=== PATIENT | male | born 2000 | race Asian ===

== ENCOUNTER 2024-11-09 10:13 | Emergency (ER) | payer OTHER ==
[~2024-11-09] VITALS: Ht 188 cm; Wt 112.8 kg
[2024-11-09 10:52] LABS: BASO # 0.1 10^3/uL (0.0-0.2); BASO % 0.8 % (0.0-1.0); EOS # 0.1 10^3/uL (0.0-0.5); EOS % 0.8 % (0.0-3.0); HEMATOCRIT 49.3 % (42.0-52.0); HEMOGLOBIN 16.7 g/dl (13.5-17.5); LYMPH # 1.7 10^3/uL (1.5-5.0); LYMPH % 26.9 % (24.0-44.0); MEAN CORPUSCULAR HEMOGLOBIN 30.1 pg (27.0-33.0); MEAN CORPUSCULAR HGB CONC 33.9 g/dl (32.0-36.5); MONO # 0.5 10^3/uL (0.0-0.8); NEUTROPHILS # 3.9 10^3/uL (1.5-8.5); NEUTROPHILS % 62.7 % (36.0-66.0); PLATELET COUNT, AUTOMATED 283 10^3/uL (150-450); RED BLOOD COUNT 5.54 10^6/uL (4.30-6.10); WHITE BLOOD COUNT 6.3 10^3/uL (4.0-10.0)
[2024-11-09 11:15] LABS: BLOOD UREA NITROGEN 18 MG/DL (9-23); CALCIUM LEVEL 9.9 MG/DL (8.5-10.1); CARBON DIOXIDE LEVEL 29 MMOL/L (20-31); CHLORIDE LEVEL 102 MMOL/L (98-107); CREATININE FOR GFR 1.13 MG/DL (0.70-1.30); GLOMERULAR FILTRATION RATE > 60.0 (>60); GLUCOSE, FASTING 95 MG/DL (60-100); SODIUM LEVEL 140 MMOL/L (136-145)
[2024-11-09] MEDS ORDERED: diphenhydrAMINE 50MG/ML VIAL IV ONE (12:00)
[2024-11-09] MEDS ORDERED: methylPREDNISolone 125MG 2ML VIAL IV ONE (12:00)
[2024-11-09] MEDS: FAMOTIDINE 20MG/2ML VIAL IVP ONE (12:12)
[2024-11-09 12:33] VITALS: BP 129/68; TEMP 97.9; O2SAT 98
== END 2024-11-09 12:39 | disposition home or self-care (01) ==
LOC: EDBD 10:13 → M ED 10:13
DX: R21 Rash and other nonspecific skin eruption (principal)
CPT/HCPCS: 80048; 85025; 93041; 94760; 96374; 99285; S0028

== ENCOUNTER 2024-12-06 10:23 | Emergency (ER) | payer OTHER ==
[~2024-12-06] VITALS: Ht 188 cm; Wt 114.4 kg
[2024-12-06] MEDS ORDERED: AMOX875T PO (13:19)
[2024-12-06 13:27] VITALS: BP 167/74; TEMP 97.1; O2SAT 100
== END 2024-12-06 13:30 | disposition home or self-care (01) ==
LOC: M ED 10:23
DX: H66.92 Otitis media, unspecified, left ear (principal); F17.290 Nicotine dependence, other tobacco product, uncomplicated